=== PATIENT | female | born 1995 | race African-American/Black ===

== ENCOUNTER 2021-05-13 19:22 | Emergency (ER) | payer OTHER ==
[2021-05-13] MEDS ORDERED: Ondansetron PF 4 MG/2 ML Vial ONE (20:20)
[2021-05-13] MEDS ORDERED: Ketorolac Tromethamine 30 MG/ML VIAL ONE (20:20)
[2021-05-13 20:43] LABS: #Monocytes 0.6 10x3/uL (0.0-1.1); #Neutrophils 6.8 10x3/uL (1.5-8.4); %Basophils 0.2 % (0.0-2.0); %Eosinophils 0.2 % (0.0-6.0); %Monocytes 6.7 % (0.0-10.0); %Neutrophils 70.6 % (40.0-75.0); Hemoglobin 12.2 g/dL (12.0-15.5); Mean Corpuscular HGB CONC 35.4 g/dL (32.0-36.0); Mean Corpuscular Hemoglobin 27.5 pg (27.0-33.0); Mean Corpuscular Volume 77.9 fl (81.6-98.3); Mean Platelet Volume 10.6 fl (7.4-10.4); Platelet Count 199 10x3/uL (150-450); RBC Distribution Width 13.6 % (11.5-14.5); Red Blood Cell (RBC) Count 4.43 10x6/uL (3.90-5.03); White Blood Cell (WBC) Count 9.6 10x3/uL (3.5-10.5)
[2021-05-13 20:49] LABS: SARS-CoV-2 NAA Rapid Test Not Detected (NotDetected)
[2021-05-13 21:05] LABS: BHCG - Serum POSITIVE (NEGATIVE); Pregs Control Background? CLEAR/WHITE (CLR/WHITE); Pregs Control Bar Appear? YES (CONTROL BAR)
[2021-05-13 21:06] LABS: ALT (SGPT) 10 U/L (8-55); AST (SGOT) 14 U/L (5-34); Albumin 4.4 g/dL (3.5-5.0); Alkaline Phosphatase 66 U/L (40-110); Anion Gap 16 mmol/L (10-20); BUN (Urea Nitrogen) 7 mg/dL (7.0-18.7); Bilirubin, Total 0.4 mg/dL (0.2-1.2); Calc. Creatinine Clearance 0 mL/min (70-130); Calcium 9.3 mg/dL (7.8-10.44); Carbon Dioxide 17 mmol/L (22-29); Chloride 108 mmol/L (98-107); Globulin 3.5 g/dL (2.4-3.5); Glucose 101 mg/dL (70-105); Lipase 20 U/L (8-78); Potassium 3.6 mmol/L (3.5-5.1); Protein, Total 7.9 g/dL (6.0-8.3); Sodium 137 mmol/L (136-145)
== END 2021-05-13 19:34 | disposition home or self-care (01) ==
LOC: CSHERS 19:22
DX: O99.611 Diseases of the digestive system complicating pregnancy, first trimester (principal); K80.70 Calculus of gallbladder and bile duct without cholecystitis without obstruction; Z20.822 Contact with and (suspected) exposure to COVID-19
CPT/HCPCS: 76705; 80053; 83690; 84703; 85025; 93005; 96374; 96375; J1885; J2405; U0002

== ENCOUNTER 2021-12-04 12:50 | Inpatient (IN) | payer OTHER, SELFPAY ==
[~2021-12-04 12:50] MED LIST: Bupivacaine 0.25% HCL 30 ML VIAL ONE
[2021-12-04 13:03] VITALS: BMI 29.9
[2021-12-04] MEDS ORDERED: HYDROcodone/Acetaminophen 5/325 mg Tablet PO PRN (13:13)
[2021-12-04] MEDS ORDERED: Carboprost 250 MCG/ML AMP IM PRN (13:13)
[2021-12-04] MEDS ORDERED: Methylergonovine 0.2 MG/ML VIAL IM PRN (13:13)
[2021-12-04] MEDS ORDERED: Acetaminophen 500 MG TAB PO PRN (13:13)
[2021-12-04] MEDS ORDERED: hydrALAZINE 20 MG/ML VIAL SLOW IVP PRN (13:13)
[2021-12-04] MEDS ORDERED: Misoprostol 200 MCG TAB PR PRN (13:13)
[2021-12-04] MEDS ORDERED: Diphenoxylate HCl/Atropine Tablet PO PRN (13:13)
[2021-12-04] MEDS ORDERED: Ondansetron PF 4 MG/2 ML Vial IVP PRN ×2 (13:13→14:59)
[2021-12-04] MEDS ORDERED: Promethazine HCl 25 MG/ML VIAL IM PRN ×2 (13:13→14:59)
[2021-12-04] MEDS ORDERED: Lidocaine 1% (PF) 30 ML VIAL SC PRN (13:13)
[2021-12-04] MEDS ORDERED: Butorphanol Tartrate 1 MG/ML VIAL SLOW IVP PRN (13:13)
[2021-12-04] MEDS ORDERED: Penicillin G Potassium 5 MILL.UNITS in Sodium Chloride 0.9% 100 ML IVPB SCH (13:15)
[2021-12-04] MEDS ORDERED: NS w/ Oxytocin 30 units 500 ML IV SCH ×2 (13:15)
[2021-12-04] MEDS: Lactated Ringer's 1,000 ML IV SCH ×2 (13:25→14:55)
[2021-12-04 13:48] LABS: Hemoglobin 12.2 g/dL (12.0-15.5); Mean Corpuscular HGB CONC 37.2 g/dL (32.0-36.0); Mean Corpuscular Hemoglobin 28.7 pg (27.0-33.0); Mean Corpuscular Volume 77.2 fl (81.6-98.3); Mean Platelet Volume 10.2 fl (7.4-10.4); Platelet Count 229 10x3/uL (150-450); RBC Distribution Width 13.1 % (11.5-14.5); Red Blood Cell (RBC) Count 4.25 10x6/uL (3.90-5.03); White Blood Cell (WBC) Count 12.2 10x3/uL (3.5-10.5)
[2021-12-04 14:19] LABS: Syphilis Antibody Nonreactive (Nonreactive); Syphilis Antibody Index 0.06 S/CO (<1.00 Non-Reactive)
[2021-12-04 14:20] LABS: Hep B Surf Ag Non-Reactive S/CO (NonReactive)
[2021-12-04 14:23] LABS: HBSAg Index 0.18 S/CO (0-0.99)
[2021-12-04] MEDS ORDERED: Fentanyl 2 mcg/Bup 0.1% Cadd 100 ML ONE (14:36)
[2021-12-04 14:51] LABS: Amphetamine Not Detected (NotDetected); Barbiturates Screen Not Detected (NotDetected); Benzodiazepine Screen Not Detected (NotDetected); Cocaine Metabolite Screen Not Detected (NotDetected); Methadone Not Detected (NotDetected); Methamphetamine Not Detected (NotDetected); Opiate Screen Not Detected (NotDetected); Oxycodone Screen Not Detected (NotDetected); Phencyclidine (PCP) Not Detected (NotDetected); THC/Cannabinoid Screen Not Detected (NotDetected); Tricyclic Screen Not Detected (NotDetected)
[2021-12-04] MEDS ORDERED: Acetaminophen 325 MG TAB PO PRN (14:59)
[2021-12-04] MEDS ORDERED: ePHEDrine Sulfate 50 MG/10 ML VIAL SLOW IVP PRN (14:59)
[2021-12-04] MEDS ORDERED: diphenhydrAMINE 50 MG/ML VIAL IVP PRN (14:59)
[2021-12-04] MEDS ORDERED: Lactated Ringer's 500 ML IV PRN (14:59)
[2021-12-04] MEDS ORDERED: Naloxone HCl 0.4 mg/ml Vial IVP PRN ×2 (14:59)
[2021-12-04] MEDS ORDERED: Moisturizing Cream (Eucerin) 113 GM JAR TOP PRN (14:59)
[2021-12-04] MEDS ORDERED: Communication Order-Pharmacy FS SCH (15:00)
[2021-12-04] MEDS ORDERED: Fentanyl 2 mcg/Bupivacaine 0.1% Cassette 100 ML EPIDURAL SCH (15:00)
[2021-12-04 15:26] LABS: SARS-CoV-2 NAA Rapid Test Not Detected (NotDetected)
[2021-12-04] MEDS: Penicillin G 2.5 MILL.units 2.5 MILL.UNITS in Premix Bag 1 BAG IVPB SCH ×2 (17:01→21:02)
[2021-12-04] MEDS: Ibuprofen 800 MG TAB PO PRN (21:23)
[2021-12-04] MEDS ORDERED: HYDROcodone/Acetaminophen 5/325 mg Tablet PO SCH (23:30)
[2021-12-05] MEDS ORDERED: HYDROcodone/Acetaminophen 5/325 mg Tablet PO PRN (05:17)
[2021-12-05] MEDS ORDERED: Boostrix 0.5 ML (Tdap) VIAL IM ONE (05:17)
[2021-12-05] MEDS ORDERED: Promethazine HCl 25 MG/ML VIAL IM PRN (05:17)
[2021-12-05] MEDS ORDERED: Benzocaine-Menthol 82.5 ML CAN TOP PRN (05:17)
[2021-12-05] MEDS ORDERED: NS w/ Oxytocin 30 units 500 ML IV SCH (05:17)
[2021-12-05] MEDS ORDERED: hydrALAZINE 20 MG/ML VIAL SLOW IVP PRN (05:17)
[2021-12-05] MEDS ORDERED: diphenhydrAMINE 25 MG CAP PO PRN (05:17)
[2021-12-05] MEDS ORDERED: Lanolin Ointment 7 GM TUBE TOP PRN (05:17)
[2021-12-05] MEDS ORDERED: Ondansetron PF 4 MG/2 ML Vial IVP PRN (05:17)
[2021-12-05] MEDS ORDERED: Milk Of Magnesia 30 ML UDCUP PO PRN (05:17)
[2021-12-05] MEDS ORDERED: Bisacodyl 10 MG SUPP PR PRN (05:17)
[2021-12-05] MEDS: Ibuprofen 800 MG TAB PO PRN (05:19)
[2021-12-05] MEDS: Penicillin G 2.5 MILL.units 2.5 MILL.UNITS in Premix Bag 1 BAG IVPB SCH (07:39)
[2021-12-05] MEDS: Lactated Ringer's 1,000 ML IV SCH (07:40)
[2021-12-05] MEDS: Ibuprofen 800 MG TAB PO SCH ×3 (07:41→22:07)
[2021-12-05] MEDS: Ferrous Sulfate 325 MG TAB PO SCH ×3 (07:42→10:56)
[2021-12-05] MEDS: Prenatal Vitamin 1 TAB PO SCH (10:56)
[2021-12-05] MEDS: Docusate 100 MG CAP PO SCH ×2 (10:56→22:07)
[2021-12-05] MEDS: Clotrimazole 1% Cream 15 GM TUBE TOP SCH (22:44)
[2021-12-06] MEDS: Ibuprofen 800 MG TAB PO SCH ×2 (05:57→14:32)
[2021-12-06] MEDS: Clotrimazole 1% Cream 15 GM TUBE TOP SCH (08:00)
[2021-12-06] MEDS: Ferrous Sulfate 325 MG TAB PO SCH (08:01)
[2021-12-06] MEDS: Prenatal Vitamin 1 TAB PO SCH (08:01)
[2021-12-06] MEDS: Docusate 100 MG CAP PO SCH (08:01)
[2021-12-06 08:03] VITALS: BP 110/55; TEMP 97.6
== END 2021-12-06 18:44 | disposition home or self-care (01) | DRG 805 ==
LOC: EEVIPCON 12:50 → CSHLD 12:50 → CSHPP 12-05 00:45
PROVIDERS: ADMIT Family Medicine; ATTEND Family Medicine
PROC: 10E0XZZ Delivery of Products of Conception, External Approach (ICD-10-PCS; principal; 2021-12-04)
PROC: 10907ZC Drainage of Amniotic Fluid, Therapeutic from Products of Conception, Via Natural or Artificial Opening (ICD-10-PCS; 2021-12-04)
PROC: 10H07YZ Insertion of Other Device into Products of Conception, Via Natural or Artificial Opening (ICD-10-PCS; 2021-12-04)
DX: O60.14X0 Preterm labor third trimester with preterm delivery third trimester, not applicable or unspecified (principal); O45.93 Premature separation of placenta, unspecified, third trimester; Z37.0 Single live birth; Z3A.35 35 weeks gestation of pregnancy; Z20.822 Contact with and (suspected) exposure to COVID-19; O69.81X0 Labor and delivery complicated by cord around neck, without compression, not applicable or unspecified
CPT/HCPCS: 51702; 80306; 85027; 86780; 86850; 86900; 86901; 87340; 88307; J2540; J2590; J3490; J7120; S0020; U0002

== ENCOUNTER 2023-03-17 17:55 | Inpatient (IN) | payer OTHER ==
[~2023-03-17 17:55] MED LIST changes: -Bupivacaine 0.25% HCL 30 ML VIAL ONE; +Bupivacaine PF 0.5% 30 ML VIAL ONE
[2023-03-17 18:53] VITALS: BMI 29.2
[2023-03-17] MEDS ORDERED: hydrALAZINE 20 MG/ML VIAL SLOW IVP PRN ×2 (19:15→21:21)
[2023-03-17] MEDS ORDERED: Acetaminophen 500 MG TAB PO PRN (21:21)
[2023-03-17] MEDS ORDERED: Misoprostol 200 MCG TAB PR PRN (21:21)
[2023-03-17] MEDS ORDERED: Methylergonovine 0.2 MG/ML VIAL IM PRN (21:21)
[2023-03-17] MEDS ORDERED: Carboprost 250 MCG/ML AMP IM PRN (21:21)
[2023-03-17] MEDS ORDERED: Docusate 100 MG CAP PO PRN (21:21)
[2023-03-17] MEDS ORDERED: fentaNYL 50 mcg/mL 1 mL Vial SLOW IVP PRN (21:21)
[2023-03-17] MEDS ORDERED: Ondansetron PF 4 MG/2 ML Vial IVP PRN ×2 (21:21→22:34)
[2023-03-17] MEDS ORDERED: Promethazine HCl 25 MG/ML VIAL IM PRN ×2 (21:21→22:34)
[2023-03-17] MEDS ORDERED: Tranexamic Acid 1,000 MG/10 ML VIAL IVP PRN (21:21)
[2023-03-17] MEDS ORDERED: Diphenoxylate HCl/Atropine Tablet PO PRN (21:21)
[2023-03-17] MEDS ORDERED: Butorphanol Tartrate 1 MG/ML VIAL SLOW IVP PRN (21:21)
[2023-03-17] MEDS ORDERED: Lidocaine 1% (PF) 30 ML VIAL SC PRN (21:24)
[2023-03-17] MEDS ORDERED: Acetaminophen/Codeine 30-300mg Tablet PO PRN (21:24)
[2023-03-17] MEDS ORDERED: Ibuprofen 800 MG TAB PO PRN (21:24)
[2023-03-17] MEDS ORDERED: HYDROcodone/Acetaminophen 5/325 mg Tablet PO PRN (21:24)
[2023-03-17] MEDS ORDERED: fentaNYL/Ropivacaine Epidural 100 ML ONE (21:27)
[2023-03-17] MEDS ORDERED: Penicillin G Potassium 5 MILL.UNITS VIAL ONE (21:27)
[2023-03-17] MEDS ORDERED: Penicillin G Potassium 5 MILL.UNITS in Sodium Chloride 0.9% 100 ML IVPB SCH (21:30)
[2023-03-17 21:51] LABS: Hematocrit 30.3 % (34.9-44.5); Hemoglobin 10.9 g/dL (12.0-15.5); Mean Corpuscular Hemoglobin 28.4 pg (27.0-33.0); Mean Corpuscular Volume 78.9 fl (81.6-98.3); Mean Platelet Volume 10.8 fl (7.4-10.4); Platelet Count 213 10x3/uL (150-450); Red Blood Cell (RBC) Count 3.84 10x6/uL (3.90-5.03); White Blood Cell (WBC) Count 9.7 10x3/uL (3.5-10.5)
[2023-03-17] MEDS ORDERED: diphenhydrAMINE 50 MG/ML VIAL IVP PRN (22:34)
[2023-03-17] MEDS ORDERED: Moisturizing Cream (Eucerin) 113 GM JAR TOP PRN (22:34)
[2023-03-17] MEDS ORDERED: Naloxone HCl 0.4 mg/ml Vial IVP PRN ×2 (22:34)
[2023-03-17] MEDS ORDERED: Lactated Ringer's 500 ML IV PRN (22:34)
[2023-03-17] MEDS ORDERED: ePHEDrine Sulfate 50 MG/10 ML VIAL SLOW IVP PRN (22:34)
[2023-03-17] MEDS ORDERED: Acetaminophen 325 MG TAB PO PRN (22:34)
[2023-03-17 22:44] LABS: Syphilis Antibody Nonreactive (Nonreactive); Syphilis Antibody Index 0.05 S/CO (<1.00 Non-Reactive)
[2023-03-17 22:45] LABS: HBSAg Index 0.21 S/CO (0-0.99); Hep B Surf Ag - L&D Non-Reactive S/CO (NonReactive)
[2023-03-17] MEDS ORDERED: Communication Order-Pharmacy FS SCH (22:45)
[2023-03-17] MEDS ORDERED: fentaNYL 2 mcg/Ropivacaine 0.2% Epidural 100 ML CADD EPIDURAL SCH (22:45)
[2023-03-17] MEDS ORDERED: Lactated Ringer's 1,000 ML IV SCH (23:00)
[2023-03-18] MEDS: Penicillin G 2.5 MILL.units 2.5 MILL.UNITS in Premix Bag 1 BAG IVPB SCH ×3 (01:52→10:29)
[2023-03-18] MEDS ORDERED: Bupivacaine 0.25% HCL 30 ML VIAL ONE (05:54)
[2023-03-18] MEDS: Oxytocin 30 units/NS 500 ML 500 ML IV SCH ×2 (07:06→11:48)
[2023-03-18] MEDS ORDERED: diphenhydrAMINE 25 MG CAP PO PRN (13:19)
[2023-03-18] MEDS ORDERED: HYDROcodone/Acetaminophen 5/325 mg Tablet PO PRN (13:19)
[2023-03-18] MEDS ORDERED: Bisacodyl 10 MG SUPP PR PRN (13:19)
[2023-03-18] MEDS ORDERED: Ondansetron PF 4 MG/2 ML Vial IVP PRN (13:19)
[2023-03-18] MEDS ORDERED: Milk Of Magnesia 30 ML UDCUP PO PRN (13:19)
[2023-03-18] MEDS ORDERED: Boostrix 0.5 ML (Tdap) VIAL (>/=7 yrs of age) IM ONE (13:19)
[2023-03-18] MEDS ORDERED: hydrALAZINE 20 MG/ML VIAL SLOW IVP PRN (13:19)
[2023-03-18] MEDS: Ibuprofen 800 MG TAB PO SCH ×2 (13:53→21:47)
[2023-03-18] MEDS: Ferrous Sulfate 325 MG TAB PO SCH (20:14)
[2023-03-18] MEDS: Docusate 100 MG CAP PO SCH (21:48)
[2023-03-19] MEDS: Ibuprofen 800 MG TAB PO SCH ×2 (05:31→14:14)
[2023-03-19] MEDS: Ferrous Sulfate 325 MG TAB PO SCH ×2 (07:08→18:22)
[2023-03-19 07:49] VITALS: BP 121/74; TEMP 97.9
[2023-03-19] MEDS ORDERED: Prenatal Vitamin 1 TAB PO SCH (09:00)
[2023-03-19] MEDS: Docusate 100 MG CAP PO SCH (09:10)
== END 2023-03-19 17:35 | disposition home or self-care (01) | DRG 807 ==
LOC: CSHLD/OP 17:55 → CSHLD 21:30 → CSHPED 03-18 12:40
PROVIDERS: ADMIT Family Medicine; ATTEND Family Medicine
PROC: 10E0XZZ Delivery of Products of Conception, External Approach (ICD-10-PCS; principal; 2023-03-18)
PROC: 10907ZC Drainage of Amniotic Fluid, Therapeutic from Products of Conception, Via Natural or Artificial Opening (ICD-10-PCS; 2023-03-18)
DX: O80 Encounter for full-term uncomplicated delivery (principal); Z37.0 Single live birth; Z3A.37 37 weeks gestation of pregnancy
CPT/HCPCS: 51702; 85027; 86780; 86850; 86900; 86901; 87340; 99285; J2405; J2540; J2590; S0020

== ENCOUNTER 2023-06-12 11:47 | Emergency (ER) | payer OTHER ==
[2023-06-12 13:30] LABS: SARS-CoV-2 NAA Rapid Test Not Detected (NotDetected)
[2023-06-12] MEDS ORDERED: Acetaminophen 650 MG/20.3 ML UDCUP ONE (14:12)
== END 2023-06-12 14:13 | disposition home or self-care (01) ==
LOC: CSHERS 11:47
DX: J11.1 Influenza due to unidentified influenza virus with other respiratory manifestations (principal); Z20.822 Contact with and (suspected) exposure to COVID-19
CPT/HCPCS: 99283

== ENCOUNTER 2025-06-11 02:53 | Emergency (ER) | payer SELFPAY ==
[2025-06-11] MEDS ORDERED: Lidocaine 1% w/Epinephrine 1:200K 30 ML VIAL ONE (03:21)
== END 2025-06-11 03:50 | disposition home or self-care (01) ==
LOC: CSHERS 02:53
DX: L02.416 Cutaneous abscess of left lower limb (principal); L73.2 Hidradenitis suppurativa; F17.210 Nicotine dependence, cigarettes, uncomplicated
CPT/HCPCS: 10060